=== PATIENT | female | born 1960 | race Caucasian/White ===

== ENCOUNTER 2017-07-27 12:59 | Observation (INO) | payer OTHER ==
--- NOTE | 2017-07-27 13:10 | PDOC ---
History of Present Illness - General Chief Complaint: Syncope/Near Syncope Stated Complaint: SYNCOPE Time Seen by Provider: 07/27/17 13:09 History Source: Patient Exam Limitations: No Limitations - History of Present Illness Initial Comments: 07/27/17 14:08 57-year-old female history of depression and anxiety here today following a syncopal episode while at the nail salon. Patient states she was getting her nails done suddenly felt some low back pain got up to go use the restroom and subsequently fainted. Brief LOC no precipitating chest pain or palpitations. No recent fevers chills nausea vomiting denies any alcohol. Has been having intermittent sharp lower back pain throughout the day denies any dysuria hematuria no history of renal colic no new numbness or weakness patient states her blood pressure usually runs low around 110-120 systolic patient currently feels at her baseline however is having persistent intermittent lower back pain does have a family history of CAD and her father in his 50s. Patient states she has not had any prior cardiac workup Past History - Past Medical History Allergies/Adverse Reactions: Allergies Allergy/AdvReac Type Severity Reaction Status Date / Time No Known Allergies Allergy Verified 07/27/17 13:02 Home Medications: Ambulatory Orders Carbamazepine 400 mg PO BID 07/27/17 Duloxetine HCl 60 mg PO HS 07/27/17 Gabapentin 600 mg PO BID 07/27/17 - Suicide/Smoking/Psychosocial Hx Smoking History: Never smoked Have you smoked in the past 12 months: No Hx Alcohol Use: No Drug/Substance Use Hx: Yes (RX DRUGS IN THE PAST) Substance Use Type: Prescribed Review of Systems - Review of Systems Constitutional: Yes: Diaphoresis. No: Chills HEENTM: No: Cataracts Respiratory: No: Orthopnea, Shortness of Breath, Wheezing, Productive cough Cardiac (ROS): No: Edema ABD/GI: No: Abdominal Distended, Nausea, Vomiting Musculoskeletal: Yes: Back Pain Integumentary: No: Bruising, Change in Color Neurological: No: Headache All Other Systems: Reviewed and Negative *Physical Exam - Vital Signs Last Vital Signs Temp Pulse Resp BP Pulse Ox 98 F 65 16 104/74 99 07/27/17 13:00 07/27/17 15:00 07/27/17 15:00 07/27/17 15:00 07/27/17 15:00 - Physical Exam General Appearance: Yes: Appropriately Dressed HEENT: positive: Normal ENT Inspection, Other (dry mucous membranes) Respiratory/Chest: positive: Lungs Clear, Normal Breath Sounds Cardiovascular: positive: Regular Rhythm, Regular Rate, S1, S2 Female Pelvic Exam: positive: normal external exam Gastrointestinal/Abdominal: positive: Normal Bowel Sounds, Flat, Soft, Other ( no pulsatile mass). negative: Tender Musculoskeletal: positive: Normal Inspection. negative: CVA Tenderness, CVA Tenderness (R), CVA Tenderness (L), Decreased Range of Motion, Vertebral Tenderness Extremity: positive: Normal Capillary Refill, Normal Inspection, Other (no pedal edema. no calf tenderness. 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 intact, Fully Oriented, Alert, Normal Mood/ Affect, Normal Response, Motor Strength 5/5, Other (speech clear) Heart Score/ECG Review #1 ECG reviewed & interpreted by me at: 13:10 General ECG Interpretation: Sinus Rhythm, Normal Rate (63), Normal Intervals, No acute ischemic changes ED Treatment Course - LABORATORY CBC & Chemistry Diagram: 07/27/17 13:13 07/27/17 13:13 - ADDITIONAL ORDERS Additional order review: Laboratory Results 07/27/17 07/27/17 07/27/17 14:40 13:13 13:13 Sodium 125 L Potassium 3.9 Chloride 93 L Carbon Dioxide 26 Anion Gap 6 L BUN 10 Creatinine < 0.8 Creat Clearance w eGFR > 60 Random Glucose 109 H Calcium 8.3 L Total Bilirubin < 0.5 AST 23 ALT 26 Alkaline Phosphatase 121 H Creatine Kinase 107 Troponin I < 0.03 Total Protein 6.3 L Albumin 3.9 Urine Color Yellow Urine Appearance Cloudy Urine pH 7.0 Ur Specific [place] 1.010 Urine Protein Negative Urine Glucose (UA) Negative Urine Ketones Negative Urine Blood Negative Urine Nitrite Negative Urine Bilirubin Negative Urine Urobilinogen 0.2 Ur Leukocyte Esterase 1+ H Urine RBC 0-3 Urine WBC 10-15 Ur Epithelial Cells Few Urine Bacteria Moderate 07/27/17 13:13 RBC 3.71 MCV 90.5 MCHC 34.6 RDW 12.4 MPV 7.0 L Neutrophils % No Result Required. Lymphocytes % No Result Required. - RADIOLOGY Radiology Studies Ordered: Category Date Time Status ABDOMEN CTA W/WO CONTRAST [CT] Stat CT Scan 07/27/17 14:01 Completed CHEST CTA [CT] Stat CT Scan 07/27/17 14:00 Completed - Medications Given in the ED: ED Medications Discontinued Medications Generic Name Dose Route Start Last Admin Trade Name Dale PRN Reason Stop Dose Admin Acetaminophen 1,000 mg 07/27/17 15:02 07/27/17 15:05 Ofirmev Injection - IVPB 07/27/17 15:03 1,000 mg ONCE ONE Administration Ceftriaxone Sodium 1,000 mg/ 50 mls @ 100 mls/hr 07/27/17 16:30 07/27/17 16: 40 Dextrose IVPB 07/27/17 16:59 100 mls/hr ONCE ONE Administration Ketorolac Tromethamine 30 mg 07/27/17 15:34 07/27/17 15:40 Toradol Injection - IVPUSH 07/27/17 15:35 30 mg ONCE ONE Administration Sodium Chloride 1,000 ml 07/27/17 13:23 07/27/17 13:25 Normal Saline - IV 07/27/17 13:24 1,000 ml ONCE ONE Administration Sodium Chloride 1,000 ml 07/27/17 16:26 07/27/17 16:33 Normal Saline - IV 07/27/17 16:27 1,000 ml ONCE ONE Administration Medical Decision Making - Medical Decision Making 07/27/17 14:13 57 yo F s/p syncope, with intermittent sharp back pain. differential vasovagal, orthostatis and hypovolemia. infection such as uti or pyelo. dissection, renal colic, dysrhtymia. plan bedside aortic us, renal us, possible cta. labs trop ekg tele monitoring and iv hydration. focused ED ultrasound aorta, aorta scanned in two planes, measured at proximal, mid and distally. all measuring less than 2 cm. long view normal. impression: no aaa. focused ED TTE four views obtained, overall good contractility, no focal wall motion abnormalities. no rv enlargement or strain. no pericardial effusion. impressions: normal TTE renal ultrasound, bilateral kidneys scanned in two planes. no hydronephrosis noted. bladder empty. impression: normal renal ultrasound. 07/27/17 17:16 cta negative for dissection. pt initial ua read as clear, however with reported micro changed to cloudy and 10 - 15 wbc. given ceftriaxone. blood cultures ordered in addition to lactate. pt afebrile. normal wbc. bp as low as 69 sbp, given second fluid bolus, improved to 86/60 *DC/Admit/Observation/Transfer Diagnosis at time of Disposition: Syncope, Hyponatremia, UTI (urinary tract infection) - Discharge Dispostion Condition at time of disposition: Stable Decision to Admit order: Yes Decision to Admit order Date/Time: Decision to Admit Order Category Date Time Status Decision to Admit to Hospital Routine Admission 07/27/17 16:03 Active - Referrals - Patient Instructions - Post Discharge Activity
[2017-07-27] MEDS ORDERED: SODIUM CHLORIDE 0.9% 1000 ML INFUS.BAG IV ONE ×2 (13:23→16:26)
[2017-07-27 13:37] LABS: ADD RBC MORPHOLOGY YES; HEMATOCRIT 33.5 % (32.4-45.2); HEMOGLOBIN 11.6 GM/dl (10.7-15.3); MCH 31.4 pg (25.7-33.7); MCHC 34.6 g/dl (32.0-36.0); MEAN CELL VOLUME 90.5 fl (80-96); PLATELET COUNT 268 K/MM3 (134-434); RBC 3.71 M/mm3 (3.60-5.2); RDW 12.4 % (11.6-15.6); WHITE BLOOD COUNT 2.6 K/mm3 (4.0-10.8)
[2017-07-27 13:41] LABS: ALBUMIN 3.9 g/dl (3.5-5.0); ALK PHOS 121 U/L (32-92); ANION GAP 6 (8-16); BLOOD UREA NITROGEN 10 mg/dl (7-18); CALCIUM 8.3 mg/dl (8.4-10.2); CHLORIDE 93 mmol/L (98-107); CO2 26 mmol/L (22-28); GLUCOSE,RANDOM 109 mg/dl (74-106); POTASSIUM 3.9 mmol/L (3.5-5.1); SGOT/AST 23 U/L (10-42); SGPT/ALT 26 U/L (10-40); SODIUM 125 mmol/L (136-145); TOT PROT 6.3 g/dl (6.4-8.3)
[2017-07-27 13:44] LABS: BILIRUBIN,TOTAL < 0.5 mg/dl (0.2-1.0); CREATININE < 0.8 mg/dl (0.6-1.3)
[2017-07-27 14:42] LABS: URINE BILIRUBIN Negative (NEGATIVE); URINE GLUCOSE (UA) Negative (NEGATIVE); URINE KETONE Negative (NEGATIVE); URINE NITRITE Negative (NEGATIVE); URINE PROTEIN Negative (NEGATIVE); URINE UROBILINOGEN 0.2 (0.2-1.0)
[2017-07-27 14:43] LABS: URINE LEUK ESTERASE 1+ (NEGATIVE)
[2017-07-27 14:44] LABS: URINE APPEARANCE CLOUDY; URINE COLOR YELLOW
[2017-07-27 14:56] LABS: EPI CELLS FEW /HPF; URINE BACTERIA MODERATE /hpf (NEGATIVE); URINE RBC 0-3 /hpf (0-3)
[2017-07-27] MEDS ORDERED: ACETAMINOPHEN INJECTION 100 ML IVPB ONE (15:02)
[2017-07-27] MEDS ORDERED: ACETAMINOPHEN 1000 MG/100 ML VIAL (NON FORMULARY) IVPB ONE (15:02)
[2017-07-27] MEDS ORDERED: KETOROLAC TROMETHAMINE 30 MG/1 ML VIAL IVPUSH ONE (15:34)
[2017-07-27] MEDS ORDERED: KETOROLAC TROMETHAMINE 30 MG/1 ML VIAL ONE (15:38)
[2017-07-27] MEDS ORDERED: CEFTRIAXONE 1,000 MG in DEXTROSE 5%-WATER - 50 ML IVPB ONE (16:30)
[2017-07-27] MEDS ORDERED: cefTRIAXone SODIUM 1 GM VIAL ONE (16:33)
[2017-07-27 18:41] VITALS: BMI 23.8
[2017-07-27] MEDS ORDERED: CYCLOBENZAPRINE HCL 10 MG TABLET (FP) PO ONE ×2 (20:15→22:10)
[2017-07-27 21:10] LABS: ANION GAP 6 (8-16); BLOOD UREA NITROGEN 9 mg/dl (7-18); CALCIUM 8.3 mg/dl (8.4-10.2); CHLORIDE 100 mmol/L (98-107); CO2 24 mmol/L (22-28); GLUCOSE,RANDOM 144 mg/dl (74-106); POTASSIUM 4.5 mmol/L (3.5-5.1); SODIUM 130 mmol/L (136-145)
[2017-07-27 21:15] LABS: CREATININE < 0.6 mg/dl (0.6-1.3)
--- NOTE | 2017-07-27 22:01 | HP ---
CHIEF COMPLAINT: Syncope, Lumbar Spasms, Abdominal Spasms PCP: [facility] Psych: Dr. Travon Castro HISTORY OF PRESENT ILLNESS: 57 y/o woman with PMH of Depression, Anxiety, Neuropathy. Who presents to the ED syncope, back and abdominal spasms x pm. Patient reports while getting her nails done she started having lumbar and abdominal spasms, she ambulated to the bathroom and fainted. Patient denies head trauma, she reports before fainting that she scooted down to the floor to avoid hitting her head. Patient denies headache, blurred vision. Patient denies fever, chills, cough, SOB, CP, palpitations, N/V/D, constipation. ER course was notable for: (1) Na 125 (2) UA- +1 Leukocyte Esterase, +10-15 WBCs, Moderate bacteria (3) Recent Travel: None PAST MEDICAL HISTORY: See HPI PAST SURGICAL HISTORY: Laminectomy C- Section Social History: Smoking: Former Alcohol: Former Drugs: Former- Prescription Opioids Family History: Father: Cardiac in 50's Mother: Lymphoma Allergies No Known Allergies Allergy (Verified 07/27/17 13:02) HOME MEDICATIONS: Home Medications Medication Instructions Recorded Carbamazepine 400 mg PO BID 07/27/17 Duloxetine HCl 60 mg PO HS 07/27/17 Gabapentin 600 mg PO BID 07/27/17 REVIEW OF SYSTEMS CONSTITUTIONAL: Absent: fever, chills, diaphoresis, generalized weakness, malaise, loss of appetite, weight change HEENT: Absent: rhinorrhea, nasal congestion, throat pain, throat swelling, difficulty swallowing, mouth swelling, ear pain, eye pain, visual changes CARDIOVASCULAR: syncope, lightheadedness Absent: chest pain, palpitations, irregular heart rate, peripheral edema RESPIRATORY: Absent: cough, shortness of breath, dyspnea with exertion, orthopnea, wheezing, stridor, hemoptysis GASTROINTESTINAL: abdominal spasms Absent: abdominal distension, nausea, vomiting, diarrhea, constipation, melena , hematochezia GENITOURINARY: Absent: dysuria, frequency, urgency, hesitancy, hematuria, flank pain, genital pain MUSCULOSKELETAL: back spasms Absent: myalgia, arthralgia, joint swelling, neck pain SKIN: Absent: rash, itching, pallor HEMATOLOGIC/IMMUNOLOGIC: Absent: easy bleeding, easy bruising, lymphadenopathy, frequent infections ENDOCRINE: Absent: unexplained weight gain, unexplained weight loss, heat intolerance, cold intolerance NEUROLOGIC: dizziness Absent: headache, focal weakness or paresthesias, unsteady gait, seizure, mental status changes, bladder or bowel incontinence PSYCHIATRIC: Absent: anxiety, depression, suicidal or homicidal ideation, hallucinations. PHYSICAL EXAMINATION Vital Signs - 24 hr 07/27/17 07/27/17 07/27/17 13:00 15:00 16:10 Temperature 98 F Pulse Rate 62 Pulse Rate [ 65 62 Left Apical] Respiratory 18 16 18 Rate Blood Pressure 94/62 Blood Pressure 104/74 77/61 [Right Arm] O2 Sat by Pulse 100 99 99 Oximetry (%) 07/27/17 07/27/17 07/27/17 16:15 16:45 17:27 Temperature 97.8 F Pulse Rate Pulse Rate [ 65 69 65 Left Apical] Respiratory 18 15 18 Rate Blood Pressure Blood Pressure 87/63 89/52 91/57 [Right Arm] O2 Sat by Pulse 100 99 99 Oximetry (%) 07/27/17 07/27/17 07/27/17 17:30 17:44 18:19 Temperature 97.6 F Pulse Rate Pulse Rate [ 64 63 Left Apical] Respiratory 14 14 Rate Blood Pressure Blood Pressure 108/65 104/65 [Right Arm] O2 Sat by Pulse 99 98 98 Oximetry (%) 07/27/17 07/27/17 07/27/17 18:47 20:51 20:52 Temperature 98.3 F 98.0 F Pulse Rate 68 64 Pulse Rate [ Left Apical] Respiratory 16 17 Rate Blood Pressure 112/68 109/70 Blood Pressure [Right Arm] O2 Sat by Pulse 97 Oximetry (%) GENERAL: Awake, alert, and fully oriented, in no acute distress. HEAD: Normal with no signs of trauma. EYES: Pupils equal, round and reactive to light, extraocular movements intact, sclera anicteric, conjunctiva clear. No lid lag. EARS, NOSE, THROAT: Ears normal, nares patent, oropharynx clear without exudates. Dry mucous membranes. NECK: Normal range of motion, supple without lymphadenopathy, JVD, or masses. LUNGS: Breath sounds equal, clear to auscultation bilaterally. No wheezes, and no crackles. No accessory muscle use. HEART: Regular rate and rhythm, normal S1 and S2 without murmur, rub or gallop. ABDOMEN: Soft, suprapubic tenderness, not distended, hyperactive bowel sounds, no guarding, no rebound, no masses. No hepatomegaly or splenomegaly. MUSCULOSKELETAL: Normal range of motion at all joints. No bony deformities, lower lumbar tenderness. No CVA tenderness. UPPER EXTREMITIES: 2+ pulses, warm, well-perfused. No cyanosis. No clubbing. No peripheral edema. LOWER EXTREMITIES: 2+ pulses, warm, well-perfused. No calf tenderness. No peripheral edema. NEUROLOGICAL: Cranial nerves II-XII intact. Normal speech. Normal gait. PSYCHIATRIC: Cooperative. Good eye contact. Appropriate mood and affect. SKIN: Warm, dry, normal turgor, no rashes or lesions noted, normal capillary refill. Laboratory Results - last 24 hr 07/27/17 07/27/17 07/27/17 13:13 13:13 13:13 WBC 2.6 L RBC 3.71 Hgb 11.6 Hct 33.5 MCV 90.5 MCH 31.4 MCHC 34.6 RDW 12.4 Plt Count 268 MPV 7.0 L Absolute Neuts (auto) 1.3 Neutrophils % No Result Required. Neutrophils % (Manual) 52.0 Lymphocytes % No Result Required. Lymphocytes % (Manual) 28.0 Monocytes % (Manual) 17 H* Eosinophils % (Manual) 2.0 Metamyelocytes 1 Sodium 125 L Potassium 3.9 Chloride 93 L Carbon Dioxide 26 Anion Gap 6 L BUN 10 Creatinine < 0.8 Creat Clearance w eGFR > 60 Random Glucose 109 H Lactic Acid Calcium 8.3 L Total Bilirubin < 0.5 AST 23 ALT 26 Alkaline Phosphatase 121 H Creatine Kinase 107 Troponin I < 0.03 Total Protein 6.3 L Albumin 3.9 Urine Color Urine Appearance Urine pH Ur Specific [place] Urine Protein Urine Glucose (UA) Urine Ketones Urine Blood Urine Nitrite Urine Bilirubin Urine Urobilinogen Ur Leukocyte Esterase Urine RBC Urine WBC Ur Epithelial Cells Urine Bacteria 07/27/17 07/27/17 07/27/17 14:40 17:15 21:00 WBC RBC Hgb Hct MCV MCH MCHC RDW Plt Count MPV Absolute Neuts (auto) Neutrophils % Neutrophils % (Manual) Lymphocytes % Lymphocytes % (Manual) Monocytes % (Manual) Eosinophils % (Manual) Metamyelocytes Sodium 130 L Potassium 4.5 Chloride 100 Carbon Dioxide 24 Anion Gap 6 L BUN 9 Creatinine < 0.6 L Creat Clearance w eGFR > 60 Random Glucose 144 H D Lactic Acid 1.4 Calcium 8.3 L Total Bilirubin AST ALT Alkaline Phosphatase Creatine Kinase Troponin I Total Protein Albumin Urine Color Yellow Urine Appearance Cloudy Urine pH 7.0 Ur Specific [place] 1.010 Urine Protein Negative Urine Glucose (UA) Negative Urine Ketones Negative Urine Blood Negative Urine Nitrite Negative Urine Bilirubin Negative Urine Urobilinogen 0.2 Ur Leukocyte Esterase 1+ H Urine RBC 0-3 Urine WBC 10-15 Ur Epithelial Cells Few Urine Bacteria Moderate 07/27/17 21:00 WBC RBC Hgb Hct MCV MCH MCHC RDW Plt Count MPV Absolute Neuts (auto) Neutrophils % Neutrophils % (Manual) Lymphocytes % Lymphocytes % (Manual) Monocytes % (Manual) Eosinophils % (Manual) Metamyelocytes Sodium Potassium Chloride Carbon Dioxide Anion Gap BUN Creatinine Creat Clearance w eGFR Random Glucose Lactic Acid Calcium Total Bilirubin AST ALT Alkaline Phosphatase Creatine Kinase Troponin I < 0.03 Total Protein Albumin medUrine Color Urine Appearance Urine pH Ur Specific [place] Urine Protein Urine Glucose (UA) Urine Ketones Urine Blood Urine Nitrite Urine Bilirubin Urine Urobilinogen Ur Leukocyte Esterase Urine RBC Urine WBC Ur Epithelial Cells Urine Bacteria ASSESSMENT/PLAN: 57 y/o woman PMHx of Depression, Anxiety, Neuropathy. Placed in Tele Observation Hyponatremia, Syncope, UTI. Plan: 1. Hyponatremia - Likely possible to medication vs SIADH vs dehydration - Continue cardiac monitoring - EKG reviewed- NSR with no ST or TWI - NS 2L bolus given in ED - Na deficit 472.5 meq - Goal Na correction of 6-8meq/24hr - Will repeat BMP tonight - Urine Osmo, Serum Osmo, Spot Urine, Urine lytes in am - Will hold Gabapentin, Carbamazepine - BMP in am 2. Syncope - Likely possible to arrhythmia vs cerebrovascular disease vs electrolyte imbalance - Cardiac monitoring - Serial Enzymes - CTA- neg aneurysm, several pulmonary nodules (will need f/u with PMD) - Appreciate Cardiology consult - Echo - Repeat CBC, BMP in am - Fall Precautions 3. UTI - UA- +1 Leukocyte esterase, 10-15 WBCs, mod Bacteria - Urine Culture-pending - Ceftriaxone given in ED, will continue 4. Depression Anxiety - Continue Cymbalta - Monitor BMP 5. Neuropathy - Hold Carbamazepine, Gabapentin secondary to Acute Hyponatremia 6. Back Spasms - Flexeril prn 7. FEN - PO Fluids as tolerated - Replete Na, continue to monitor - Regular Diet 8. DVT ppx - OOB - SCDs - Heparin SQ Code Status: Full Code Dispo Tele Observation Problem List - Problem (1) Hyponatremia Code(s): E87.1 - HYPO-OSMOLALITY AND HYPONATREMIA (2) Syncope Code(s): R55 - SYNCOPE AND COLLAPSE (3) UTI (urinary tract infection) Code(s): N39.0 - URINARY TRACT INFECTION, SITE NOT SPECIFIED (4) Depression with anxiety Code(s): F41.8 - OTHER SPECIFIED ANXIETY DISORDERS (5) Neuropathy Code(s): G62.9 - POLYNEUROPATHY, UNSPECIFIED Visit type - Emergency Visit Emergency Visit: Yes ED Registration Date: 07/27/17 Care time: The patient presented to the Emergency Department on the above date and was hospitalized for further evaluation of their emergent condition. - New Patient This patient is new to me today: Yes Date on this admission: 07/27/17 - Critical Care Critical Care patient: No Hospitalist Screening - Colonoscopy Questionnaire Colonoscopy Questionnaire: Colonoscopy Questionnaire - Patient: 50 - 75 years old and never had a screening colonoscopy: No History of colon or rectal polyps, or CA: No History of IBD, Crohn's disease or UC: No History of abdominal radiation therapy as a child: No - Relative: 1 with colon or rectal CA, or polyps at age 60 or younger: No Colon or rectal CA diagnosed at age 45 or younger: No Multiple relatives with colon or rectal CA: No - Outcome: Screening Result: Negative Screen
[2017-07-27] MEDS ORDERED: ACETAMINOPHEN 325 MG TABLET (FP) PO PRN (22:10)
[2017-07-27] MEDS ORDERED: DULoxetine HCL 30 MG CAPSULE.DR (FP) PO ONE (22:15)
[2017-07-27] MEDS: HEPARIN NA (PORCINE) 5,000 UNITS/ML 1ML VIAL SQ SCH (22:15)
[2017-07-28] MEDS: CYCLOBENZAPRINE HCL 10 MG TABLET (FP) PO PRN ×2 (05:49→16:34)
[2017-07-28 08:56] LABS: ANION GAP 5 (8-16); BLOOD UREA NITROGEN 6 mg/dl (7-18); CALCIUM 8.4 mg/dl (8.4-10.2); CHLORIDE 101 mmol/L (98-107); CO2 25 mmol/L (22-28); CREATININE 0.5 mg/dl (0.6-1.3); GLUCOSE,RANDOM 118 mg/dl (74-106); SODIUM 131 mmol/L (136-145)
[2017-07-28 09:05] LABS: MAGNESIUM 2.1 mg/dL (1.8-2.4); PHOSPHOROUS 3.6 mg/dl (2.5-4.6)
[2017-07-28 09:18] LABS: BASO % 0.3 % (0-2.0); EOS % 0.8 % (0-4.5); HEMATOCRIT 33.7 % (32.4-45.2); HEMOGLOBIN 11.9 GM/dl (10.7-15.3); LYMPH % 19.7 % (8-40); MCH 32.5 pg (25.7-33.7); MCHC 35.3 g/dl (32.0-36.0); MEAN CELL VOLUME 91.9 fl (80-96); MEAN PLT VOLUME 7.7 fl (7.5-11.1); MONO % 9.8 % (3.8-10.2); NEUT % 69.4 % (42.8-82.8); PLATELET COUNT 236 K/MM3 (134-434); RBC 3.67 M/mm3 (3.60-5.2); RDW 12.8 % (11.6-15.6); WHITE BLOOD COUNT 4.1 K/mm3 (4.0-10.8)
[2017-07-28] MEDS: HEPARIN NA (PORCINE) 5,000 UNITS/ML 1ML VIAL SQ SCH (09:33)
[2017-07-28] MEDS ORDERED: CEFTRIAXONE 1 G/50 ML PREMIX 50 ML IVPB SCH (10:00)
--- NOTE | 2017-07-28 12:28 | CON.CARD ---
Cardiology Consult (text) - Consultation Consultation Note: cc: syncope hpi: 57 f hx depression here with syncope. No hx hrt dz, no prior syncope. Yesterday walked long distance to [employer] salon, then while there felt "off" so went to bathroom and while standing at sink felt lightheaded and slowly fell to the ground. Awoke and felt ok and came to ER and bp low in er. No cp, sob, palps, pnd, orthopnea, le edema. Feels well today. pmh per hpi psh: nc social: no tob fam: dad cabg 50s ros: per hpi; no nvd, fever, hightower, vision changes, hematuria, dysuria gib meds: Home Medications Medication Instructions Recorded Carbamazepine 400 mg PO BID 07/27/17 Duloxetine HCl 60 mg PO HS 07/27/17 Gabapentin 600 mg PO BID 07/27/17 pe: Vital Signs Period Temp Pulse Resp BP Sys/Whitney Pulse Ox Last 24 Hr 97.5 F-98.3 F 59-76 14-20 77-143/47-82 97-100 nad no jvd rrr s1s2 no mrg cta bl nl eff aaox3 no le e/c/c abd nt nd pos bs no jaundice diaphoresis pos dp pt no carotid bruits Laboratory Last Values WBC 4.1 K/mm3 (4.0-10.8) 07/28/17 07:25 RBC 3.67 M/mm3 (3.60-5.2) 07/28/17 07:25 Hgb 11.9 GM/dl (10.7-15.3) 07/28/17 07:25 Hct 33.7 % (32.4-45.2) 07/28/17 07:25 MCV 91.9 fl (80-96) 07/28/17 07:25 MCH 32.5 pg (25.7-33.7) 07/28/17 07:25 MCHC 35.3 g/dl (32.0-36.0) 07/28/17 07:25 RDW 12.8 % (11.6-15.6) 07/28/17 07:25 Plt Count 236 K/MM3 (134-434) 07/28/17 07:25 MPV 7.7 fl (7.5-11.1) 07/28/17 07:25 Absolute Neuts (auto) 2.9 # 07/28/17 07:25 Neutrophils % 69.4 % (42.8-82.8) 07/28/17 07:25 Neutrophils % (Manual) 52.0 % (42.8-82.8) 07/27/17 13:13 Lymphocytes % 19.7 % (8-40) 07/28/17 07:25 Lymphocytes % (Manual) 28.0 % (8-40) 07/27/17 13:13 Monocytes % 9.8 % (3.8-10.2) 07/28/17 07:25 Monocytes % (Manual) 17 % (3.8-10.2) H* 07/27/17 13:13 Eosinophils % 0.8 % (0-4.5) 07/28/17 07:25 Eosinophils % (Manual) 2.0 % (0-4.5) 07/27/17 13:13 Basophils % 0.3 % (0-2.0) 07/28/17 07:25 Metamyelocytes 1 % (0-2) 07/27/17 13:13 Sodium 131 mmol/L (136-145) L 07/28/17 07:25 Potassium 4.0 mmol/L (3.5-5.1) 07/28/17 07:25 Chloride 101 mmol/L (98-107) 07/28/17 07:25 Carbon Dioxide 25 mmol/L (22-28) 07/28/17 07:25 Anion Gap 5 (8-16) L 07/28/17 07:25 BUN 6 mg/dl (7-18) L 07/28/17 07:25 Creatinine 0.5 mg/dl (0.6-1.3) L 07/28/17 07:25 Creat Clearance w eGFR > 60 (>60) 07/28/17 07:25 Random Glucose 118 mg/dl (74-106) H 07/28/17 07:25 Lactic Acid 1.4 mmol/L (0.0-2.0) 07/27/17 17:15 Calcium 8.4 mg/dl (8.4-10.2) 07/28/17 07:25 Phosphorus 3.6 mg/dl (2.5-4.6) 07/28/17 07:25 Magnesium 2.1 mg/dL (1.8-2.4) 07/28/17 07:25 Total Bilirubin < 0.5 mg/dl (0.2-1.0) 07/27/17 13:13 AST 23 U/L (10-42) 07/27/17 13:13 ALT 26 U/L (10-40) 07/27/17 13:13 Alkaline Phosphatase 121 U/L (32-92) H 07/27/17 13:13 Creatine Kinase 107 IU/L (26-192) 07/27/17 13:13 Troponin I < 0.03 ng/ml (0.00-0.06) 07/28/17 07:33 Total Protein 6.3 g/dl (6.4-8.3) L 07/27/17 13:13 Albumin 3.9 g/dl (3.5-5.0) 07/27/17 13:13 Triglycerides 88 mg/dl (35-160) 07/28/17 07:25 Cholesterol 225 mg/dl 07/28/17 07:25 Total LDL Cholesterol 147 mg/dl 07/28/17 07:25 HDL Cholesterol 60 mg/dl (29-89) 07/28/17 07:25 Urine Color Yellow 07/27/17 14:40 Urine Appearance Cloudy 07/27/17 14:40 Urine pH 7.0 (4.5-8) 07/27/17 14:40 Ur Specific [place] 1.010 (1.005-1.025) 07/27/17 14:40 Urine Protein Negative (NEGATIVE) 07/27/17 14:40 Urine Glucose (UA) Negative (NEGATIVE) 07/27/17 14:40 Urine Ketones Negative (NEGATIVE) 07/27/17 14:40 Urine Blood Negative (NEGATIVE) 07/27/17 14:40 Urine Nitrite Negative (NEGATIVE) 07/27/17 14:40 Urine Bilirubin Negative (NEGATIVE) 07/27/17 14:40 Urine Urobilinogen 0.2 (0.2-1.0) 07/27/17 14:40 Ur Leukocyte Esterase 1+ (NEGATIVE) H 07/27/17 14:40 Urine RBC 0-3 /hpf (0-3) 07/27/17 14:40 Urine WBC 10-15 (0-5) 07/27/17 14:40 Ur Epithelial Cells Few /HPF 07/27/17 14:40 Urine Bacteria Moderate /hpf (NEGATIVE) 07/27/17 14:40 Ur Random Sodium 52 MMOL/L (28-272) 07/28/17 08:30 Ur Random Potassium 16.2 MMOL/L (12-129) 07/28/17 08:30 Ur Random Chloride 62 MMOL/L (32-290) 07/28/17 08:30 cta chest: no dissection/aneurysm, no chf ecg: sr, nl intervals, no ischemic changes tele: sr a/p: 57 f hx depression here with syncope. syncope: -ecg, tele, exam all unremarkable -no signs chf, acs, arrhythmia -ortho vs normal -likely vasovagal. can have routine outpt echo and possibly ett as outpt. consider event monitor if sxs recur. ok for dc from cardiac pov
[2017-07-28 14:01] LABS: COCAINE, UR NEGATIVE ng/ml (CUTOFF=300); METHADONE, UR NEGATIVE ng/ml (CUTOFF=300); OPIATES, URI NEGATIVE ng/ml (CUTOFF=300); PHENCYCLIDINE,URINE NEGATIVE ng/ml (CUTOFF=25); URINE AMPHETAMINES NEGATIVE ng/ml (CUTOFF=500); URINE BARBITURATES NEGATIVE ng/ml (CUTOFF=200); URINE BENZODIAZEPINES NEGATIVE ng/ml (CUTOFF=200)
[2017-07-28 17:11] VITALS: TEMP 97.8
[2017-07-28 17:13] VITALS: BP 95/58; PULSE 81
--- NOTE | 2017-07-28 18:50 | DS ---
Physical Exam: SUBJECTIVE: Patient seen and examined OBJECTIVE: Vital Signs Period Temp Pulse Resp BP Sys/Whitney Pulse Ox Last 24 Hr 97.5 F-98.4 F 59-86 17-20 92-143/47-82 95-100 PHYSICAL EXAM GENERAL: The patient is awake, alert, and fully oriented, in no acute distress. HEAD: Normal with no signs of trauma. EYES: PERRL, extraocular movements intact, sclera anicteric, conjunctiva clear. ENT: Ears normal, nares patent, oropharynx clear without exudates, moist mucous membranes. NECK: Trachea midline, full range of motion, supple. LUNGS: Breath sounds equal, clear to auscultation bilaterally, no wheezes, no crackles, no accessory muscle use. HEART: Regular rate and rhythm, S1, S2 without murmur, rub or gallop. ABDOMEN: Soft, nontender, nondistended, normoactive bowel sounds, no guarding, no rebound, no hepatosplenomegaly, no masses. EXTREMITIES: 2+ pulses, warm, well-perfused, no edema. NEUROLOGICAL: Cranial nerves II through XII grossly intact. Normal speech, gait not observed. PSYCH: Normal mood, normal affect. SKIN: Warm, dry, normal turgor, no rashes or lesions noted. LABS Laboratory Results - last 24 hr 07/27/17 07/27/17 07/27/17 17:15 21:00 21:00 WBC RBC Hgb Hct MCV MCH MCHC RDW Plt Count MPV Absolute Neuts (auto) Neutrophils % Lymphocytes % Monocytes % Eosinophils % Basophils % Sodium 130 L Potassium 4.5 Chloride 100 Carbon Dioxide 24 Anion Gap 6 L BUN 9 Creatinine < 0.6 L Creat Clearance w eGFR > 60 Random Glucose 144 H D Lactic Acid 1.4 Calcium 8.3 L Phosphorus Magnesium Troponin I < 0.03 Triglycerides Cholesterol Total LDL Cholesterol HDL Cholesterol Urine Osmolality Ur Random Sodium Ur Random Potassium Ur Random Chloride Opiates Screen Methadone Screen Barbiturate Screen Phencyclidine Screen Ur Amphetamines Screen MDMA (Ecstasy) Screen Benzodiazepines Screen Cocaine Screen U Marijuana (THC) Screen 07/28/17 07/28/17 07/28/17 07:25 07:25 07:25 WBC 4.1 RBC 3.67 Hgb 11.9 Hct 33.7 MCV 91.9 MCH 32.5 MCHC 35.3 RDW 12.8 Plt Count 236 MPV 7.7 Absolute Neuts (auto) 2.9 Neutrophils % 69.4 Lymphocytes % 19.7 Monocytes % 9.8 Eosinophils % 0.8 Basophils % 0.3 Sodium 131 L Potassium 4.0 Chloride 101 Carbon Dioxide 25 Anion Gap 5 L BUN 6 L Creatinine 0.5 L Creat Clearance w eGFR > 60 Random Glucose 118 H Lactic Acid Calcium 8.4 Phosphorus 3.6 Magnesium 2.1 Troponin I Triglycerides 88 Cholesterol 225 Total LDL Cholesterol 147 HDL Cholesterol 60 Urine Osmolality Ur Random Sodium Ur Random Potassium Ur Random Chloride Opiates Screen Methadone Screen Barbiturate Screen Phencyclidine Screen Ur Amphetamines Screen MDMA (Ecstasy) Screen Benzodiazepines Screen Cocaine Screen U Marijuana (THC) Screen 07/28/17 07/28/17 07/28/17 07:33 08:00 08:00 WBC RBC Hgb Hct MCV MCH MCHC RDW Plt Count MPV Absolute Neuts (auto) Neutrophils % Lymphocytes % Monocytes % Eosinophils % Basophils % Sodium Potassium Chloride Carbon Dioxide Anion Gap BUN Creatinine Creat Clearance w eGFR Random Glucose Lactic Acid Calcium Phosphorus Magnesium Troponin I < 0.03 Triglycerides Cholesterol Total LDL Cholesterol HDL Cholesterol Urine Osmolality 231 L Ur Random Sodium Ur Random Potassium Ur Random Chloride Opiates Screen Negative Methadone Screen Negative Barbiturate Screen Negative Phencyclidine Screen Negative Ur Amphetamines Screen Negative MDMA (Ecstasy) Screen Negative Benzodiazepines Screen Negative Cocaine Screen Negative U Marijuana (THC) Screen Negative 07/28/17 08:30 WBC RBC Hgb Hct MCV MCH MCHC RDW Plt Count MPV Absolute Neuts (auto) Neutrophils % Lymphocytes % Monocytes % Eosinophils % Basophils % Sodium Potassium Chloride Carbon Dioxide Anion Gap BUN Creatinine Creat Clearance w eGFR Random Glucose Lactic Acid Calcium Phosphorus Magnesium Troponin I Triglycerides Cholesterol Total LDL Cholesterol HDL Cholesterol Urine Osmolality Ur Random Sodium 52 Ur Random Potassium 16.2 Ur Random Chloride 62 Opiates Screen Methadone Screen Barbiturate Screen Phencyclidine Screen Ur Amphetamines Screen MDMA (Ecstasy) Screen Benzodiazepines Screen Cocaine Screen U Marijuana (THC) Screen HOSPITAL COURSE: Date of Admission:07/27/17 Date of Discharge: 07/28/17 Minutes to complete discharge: 35 Discharge Summary Reason For Visit: SYNCOPE/HYPONATREMIA Current Active Problems Depression with anxiety (Acute) Hyponatremia (Acute) Neuropathy (Acute) Syncope (Acute) UTI (urinary tract infection) (Acute) Condition: Stable - Instructions - Home Medications Comprehensive Discharge Medication List: Ambulatory Orders Carbamazepine 400 mg PO BID 07/27/17 Duloxetine HCl 60 mg PO HS 07/27/17 Gabapentin 600 mg PO BID 07/27/17
--- NOTE | 2017-07-30 22:10 | EKG ---
Test Reason : Blood Pressure : / mmHG Vent. Rate : 063 BPM Atrial Rate : 063 BPM P-R Int : 174 ms QRS Dur : 084 ms QT Int : 406 ms P-R-T Axes : 058 048 057 degrees QTc Int : 415 ms NORMAL SINUS RHYTHM NORMAL ECG NO PREVIOUS ECGS AVAILABLE Confirmed by YENI NAVARRO MD ([id number]) on 07/30/2017 10:09:41 PM Referred By: DR ORTA Confirmed By:YENI NAVARRO MD
== END 2017-07-28 19:14 | disposition home or self-care (01) ==
LOC: FER 12:59 → FM/S 16:03
PROVIDERS: ADMIT Internal Medicine; ATTEND Nurse Practitioner Acute Care
PROC: 3E03329 Introduction of Other Anti-infective into Peripheral Vein, Percutaneous Approach (ICD-10-PCS; principal; 2017-07-27)
PROC: 3E033GC Introduction of Other Therapeutic Substance into Peripheral Vein, Percutaneous Approach (ICD-10-PCS; 2017-07-27)
PROC: 3E0333Z Introduction of Anti-inflammatory into Peripheral Vein, Percutaneous Approach (ICD-10-PCS; 2017-07-27)
PROC: 3E0337Z Introduction of Electrolytic and Water Balance Substance into Peripheral Vein, Percutaneous Approach (ICD-10-PCS; 2017-07-27)
PROC: 3E013GC Introduction of Other Therapeutic Substance into Subcutaneous Tissue, Percutaneous Approach (ICD-10-PCS; 2017-07-27)
DX: R55 Syncope and collapse (principal); N39.0 Urinary tract infection, site not specified; E87.1 Hypo-osmolality and hyponatremia; F41.8 Other specified anxiety disorders; G62.9 Polyneuropathy, unspecified
CPT/HCPCS: 36415; 71275-TC; 74019-TC-FY; 74175-TC; 80048; 80053; 80061; 80307; 81003; 81015; 82436; 82550; 83605; 83735; 83930; 83935; 84100; 84133; 84300; 84484; 85025; 87040; 87077; 87086; 93005; 99285-25; G0378; J0131; J1644; J7030